=== PATIENT | male | born 1940 | race Caucasian/White ===

== ENCOUNTER 2019-01-07 19:17 | Emergency (ER) | payer MEDICARE, BC, SELFPAY ==
--- NOTE | 2019-01-07 19:33 | DI.RAD.S_ITS ---
PROCEDURE: XR FOOT RT MIN 3V INDICATIONS: right foot pain and injury TECHNIQUE: 3 views of the foot were acquired. COMPARISON: None. FINDINGS: Bones: No fractures or dislocations. There is an accessory ossicle at the lateral aspect of the distal calcaneus, but no fracture or traumatic subluxation is found. No suspicious bony lesions. Soft tissues: No tibiotalar joint effusion. Achilles tendon appears normal. IMPRESSION: No trauma found, is not lobe made of a mildly irregular accessory ossicle at the lateral border of the distal calcaneus near the calcaneocuboid articulation. Dictated by: Papo Correa M.D. on 01/07/2019 at 20:06 Approved by: Papo Correa M.D. on 01/07/2019 at 20:10
[2019-01-07 20:02] VITALS: BP 124/76; PULSE 60; RESP 18; TEMP 36.6; O2SAT 100
--- NOTE | 2019-01-07 20:54 | ED.LOWEXIN ---
HPI - Extremity Injury (Lower) General Chief Complaint: Extremity Injury, Lower Stated Complaint: RT FOOT INJURY Time Seen by Provider: 01/07/19 20:46 Source: patient and family Mode of arrival: ambulatory Limitations: no limitations History of Present Illness HPI Narrative: 78-year-old male nonsmoker with noncontributory medical exam presents with his and a chief complaint of right ankle pain after an injury earlier today. 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 He denies knee or hip pain. He denies any history of ankle injury. He denies any numbness, tingling or weakness. His pain is worse with ambulation and improves with rest. His pain is more significant now than when he injured it a few hours ago complaint: ankle injury Onset (ago): hour(s) Type of Injury: inversion Place: street/outdoors Severity: moderate Relieving factors: rest Exacerbating factors: weight bearing and movement Context: walking Associated symptoms: swelling and able to partially bear weight Other symptoms: none Related Data Allergies Allergy/AdvReac Type Severity Reaction Status Date / Time No Known Drug Allergies Allergy Verified 01/07/19 20:14 Review of Systems Constitutional Denies chills, Denies fever(s), Denies lethargy and Denies weakness Eyes Denies change in vision, Denies eye discharge, Denies irritation and Denies loss of vision ENT Ears, Nose, Mouth, and Throat: Denies change in voice, Denies neck pain and Denies sore throat Cardiovascular Denies chest pain, Denies irregular heart rhythm, Denies lightheadedness, Denies palpitations, Denies dyspnea, Denies dyspnea on exertion and Denies orthopnea Respiratory Denies cough, Denies dyspnea, Denies dyspnea on exertion and Denies wheezing Gastrointestinal Gastrointestinal: Denies abdominal pain, Denies change in bowel habits, Denies diarrhea, Denies nausea and Denies vomiting Genitourinary Denies hematuria, Denies flank pain, Denies urinary incontinence and Denies urinary urgency Musculoskeletal Reports arthralgias, Reports joint swelling, Reports limited range of motion and Denies neck pain Integumentary/Breasts Denies pruritus, Denies erythema, Denies rash and Denies wounds Neurologic Denies confusion, Denies loss of vision and Denies weakness Psychiatric Denies anxiety, Denies confusion, Denies depression, Denies homicidal ideation and Denies suicidal ideation Endocrine Denies palpitations Hematologic/Lymphatic Denies easy bruising Allergic/Immunologic Denies wheezing PFSH Social History Smoking Status: Never smoker Social History Smoking Status: Never smoker Exam Narrative Exam Narrative: GEN: AOx3 and in mild distress EYES: Pupils are equal, round, and reactive to light and accommodation. Extraoccular muscles are intact bilaterally. There is no subconjunctival hemorrhage or exudate. CHEST: Lungs are clear to auscultation bilaterally and free of wheezes, rales, or rhonchi. Heart rate is regular rhythm, there are no murmurs, clicks, rubs, or gallops. There is no chest wall tenderness. ABD: Abdomen is soft and nontender. There is no guarding or rebound. Bowel sounds are normal in all 4 quadrants. There is no mass or organomegaly. EXT: Full but painful range of motion of right ankle with no obvious swelling or deformity. This is closed, isolated and neurovascularly intact SKIN: Warm, pink, and dry. No erythema or rash Initial Vital Signs Initial Vital Signs: Vital Signs Temperature 98 F 01/07/19 20:02 Pulse Rate 60 01/07/19 20:02 Respiratory Rate 18 01/07/19 20:02 Blood Pressure 124/76 01/07/19 20:02 Pulse Oximetry 100 01/07/19 20:02 Procedures Orthopedic Splinting/Casting Injury #1: Side: right Lower Extremity Injury Location: ankle Lower Extremity Immobilizer: Cristofer wrap Post splinting neuro exam: intact Post splinting vascular exam: intact Placed by: Nursing Course Orders Ordered: ED Orders 01/07/19 19:33 XR foot RT min 3V Stat Vital Signs - 8 hr 01/07/19 20:02 01/07/19 22:06 Temperature 98 F Pulse Rate 60 79 Respiratory Rate 18 18 Blood Pressure 124/76 Blood Pressure [Left Arm] 130/79 Pulse Oximetry 100 97 MDM - Extremity Injury (Lower) Imaging Data Foot Xray: Radiologist's impression: [address] [address] XRay Report Signed Patient: Roger Hensley [facility]#: [id number] : 2Acct:[id number] Age/Sex: 78 / MDate of Service: 01/07/19 Loc: ED Accession Number: [id number] Procedure: XR foot RT min 3V Ordering Provider: Abiodun Chen D.O. PROCEDURE: XR FOOT RT MIN 3V INDICATIONS: right foot pain and injury TECHNIQUE: 3 views of the foot were acquired. COMPARISON: None. FINDINGS: Bones: No fractures or dislocations. There is an accessory ossicle at the lateral aspect of the distal calcaneus, but no fracture or traumatic subluxation is found. No suspicious bony lesions. Soft tissues: No tibiotalar joint effusion. Achilles tendon appears normal. IMPRESSION: No trauma found, is not lobe made of a mildly irregular accessory ossicle at the lateral border of the distal calcaneus near the calcaneocuboid articulation. Dictated by: Papo Correa M.D. on 01/07/2019 at 20:06 Approved by: Papo Correa M.D. on 01/07/2019 at 20:10 Discharge Plan Departure Patient Disposition: Home Clinical Impression: Ankle sprain and strain Discharge Date/Time: 01/07/19 22:05 Interventions: ED Discharge Assessment Last Done: 01/07/19 22:06 Instructions: Ankle Sprain Activity Restrictions/Additional Instructions: *You have been diagnosed with [right ankle sprain and strain] *What to do: *Take medications as directed: Tylenol and Motrin for inflammation and pain *Follow up with your primary care provider in 2-3 days, call for an appointment. Let them know you were seen in the Emergency Department and that we ask that you be seen in follow up *Return to ER if you should have any new, worsening or concerning symptoms
[2019-01-07 22:06] VITALS: BP 130/79; PULSE 79; RESP 18; O2SAT 97
--- NOTE | 2019-01-08 01:43 | ED_ITS ---
HPI - Extremity Injury (Lower) General Chief Complaint: Extremity Injury, Lower Stated Complaint: RT FOOT INJURY Time Seen by Provider: 01/07/19 20:46 Source: patient and family Mode of arrival: ambulatory Limitations: no limitations History of Present Illness HPI Narrative: 78-year-old male nonsmoker with noncontributory medical exam presents with his and a chief complaint of right ankle pain after an injury earlier today. 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 He denies knee or hip pain. He denies any history of ankle injury. He denies any numbness, tingling or weakness. His pain is worse with ambulation and improves with rest. His pain is more significant now than when he injured it a few hours ago complaint: ankle injury Onset (ago): hour(s) Type of Injury: inversion Place: street/outdoors Severity: moderate Relieving factors: rest Exacerbating factors: weight bearing and movement Context: walking Associated symptoms: swelling and able to partially bear weight Other symptoms: none Related Data Allergies Allergy/AdvReac Type Severity Reaction Status Date / Time No Known Drug Allergies Allergy Verified 01/07/19 20:14 Review of Systems Constitutional Denies chills, Denies fever(s), Denies lethargy and Denies weakness Eyes Denies change in vision, Denies eye discharge, Denies irritation and Denies loss of vision ENT Ears, Nose, Mouth, and Throat: Denies change in voice, Denies neck pain and Denies sore throat Cardiovascular Denies chest pain, Denies irregular heart rhythm, Denies lightheadedness, Denies palpitations, Denies dyspnea, Denies dyspnea on exertion and Denies orthopnea Respiratory Denies cough, Denies dyspnea, Denies dyspnea on exertion and Denies wheezing Gastrointestinal Gastrointestinal: Denies abdominal pain, Denies change in bowel habits, Denies diarrhea, Denies nausea and Denies vomiting Genitourinary Denies hematuria, Denies flank pain, Denies urinary incontinence and Denies urinary urgency Musculoskeletal Reports arthralgias, Reports joint swelling, Reports limited range of motion and Denies neck pain Integumentary/Breasts Denies pruritus, Denies erythema, Denies rash and Denies wounds Neurologic Denies confusion, Denies loss of vision and Denies weakness Psychiatric Denies anxiety, Denies confusion, Denies depression, Denies homicidal ideation and Denies suicidal ideation Endocrine Denies palpitations Hematologic/Lymphatic Denies easy bruising Allergic/Immunologic Denies wheezing PFSH Social History Smoking Status: Never smoker Social History Smoking Status: Never smoker Exam Narrative Exam Narrative: GEN: AOx3 and in mild distress EYES: Pupils are equal, round, and reactive to light and accommodation. Extraoccular muscles are intact bilaterally. There is no subconjunctival hemorrhage or exudate. CHEST: Lungs are clear to auscultation bilaterally and free of wheezes, rales, or rhonchi. Heart rate is regular rhythm, there are no murmurs, clicks, rubs, or gallops. There is no chest wall tenderness. ABD: Abdomen is soft and nontender. There is no guarding or rebound. Bowel sounds are normal in all 4 quadrants. There is no mass or organomegaly. EXT: Full but painful range of motion of right ankle with no obvious swelling or deformity. This is closed, isolated and neurovascularly intact SKIN: Warm, pink, and dry. No erythema or rash Initial Vital Signs Initial Vital Signs: Vital Signs Temperature 98 F 01/07/19 20:02 Pulse Rate 60 01/07/19 20:02 Respiratory Rate 18 01/07/19 20:02 Blood Pressure 124/76 01/07/19 20:02 Pulse Oximetry 100 01/07/19 20:02 Procedures Orthopedic Splinting/Casting Injury #1: Side: right Lower Extremity Injury Location: ankle Lower Extremity Immobilizer: Cristofer wrap Post splinting neuro exam: intact Post splinting vascular exam: intact Placed by: Nursing Course Orders Ordered: ED Orders 01/07/19 19:33 XR foot RT min 3V Stat Vital Signs - 8 hr 01/07/19 20:02 01/07/19 22:06 Temperature 98 F Pulse Rate 60 79 Respiratory Rate 18 18 Blood Pressure 124/76 Blood Pressure [Left Arm] 130/79 Pulse Oximetry 100 97 MDM - Extremity Injury (Lower) Imaging Data Foot Xray: Radiologist's impression: [address] [address] XRay Report Signed Patient: Roger Hensley [facility]#: [id number] : 2Acct:[id number] Age/Sex: 78 / MDate of Service: 01/07/19 Loc: ED Accession Number: [id number] Procedure: XR foot RT min 3V Ordering Provider: Abiodun Chen D.O. PROCEDURE: XR FOOT RT MIN 3V INDICATIONS: right foot pain and injury TECHNIQUE: 3 views of the foot were acquired. COMPARISON: None. FINDINGS: Bones: No fractures or dislocations. There is an accessory ossicle at the lateral aspect of the distal calcaneus, but no fracture or traumatic subluxation is found. No suspicious bony lesions. Soft tissues: No tibiotalar joint effusion. Achilles tendon appears normal. IMPRESSION: No trauma found, is not lobe made of a mildly irregular accessory ossicle at the lateral border of the distal calcaneus near the calcaneocuboid articulation. Dictated by: Papo Correa M.D. on 01/07/2019 at 20:06 Approved by: Papo Correa M.D. on 01/07/2019 at 20:10 Discharge Plan Departure Patient Disposition: Home Clinical Impression: Ankle sprain and strain Discharge Date/Time: 01/07/19 22:05 Interventions: ED Discharge Assessment Last Done: 01/07/19 22:06 Instructions: Ankle Sprain Activity Restrictions/Additional Instructions: *You have been diagnosed with [right ankle sprain and strain] *What to do: *Take medications as directed: Tylenol and Motrin for inflammation and pain *Follow up with your primary care provider in 2-3 days, call for an appoint ment. Let them know you were seen in the Emergency Department and that we ask that you be seen in follow up *Return to ER if you should have any new, worsening or concerning symptoms
== END 2019-01-07 22:05 | disposition home or self-care (01) ==
PROVIDERS: Emergency Provider Emergency Medicine
DX: S93.401A Sprain of unspecified ligament of right ankle, initial encounter (principal); X50.9XXA Other and unspecified overexertion or strenuous movements or postures, initial encounter; Y93.01 Activity, walking, marching and hiking
CPT/HCPCS: 73630; 99283

== ENCOUNTER → 2024-12-08 13:09 | Outpatient (CLI) | payer MEDICARE, BC, SELFPAY ==
--- NOTE | 2024-12-08 13:15 | DI.RAD.S_ITS ---
PROCEDURE: XR FOOT LT MIN 3V INDICATIONS: Ankle sprain TECHNIQUE: 3 views of the foot were acquired. COMPARISON: None. FINDINGS AND IMPRESSION: Nonacute appearing bone fragment seen adjacent to the lateral calcaneus. No acute displaced fracture or dislocation. 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 Calcaneal fragmented enthesopathy. If there is high concern for further derangement, consider MRI evaluation. Dictated by: Hussein Leger M.D. on 12/08/2024 at 13:42 Approved by: Hussein Leger M.D. on 12/08/2024 at 13:43
--- NOTE | 2024-12-08 13:15 | DI.RAD.S_ITS ---
PROCEDURE: XR TIBIA FIBULA LT 2V INDICATIONS: Ankle sprain TECHNIQUE: 2 views of the tibia and fibula were acquired. COMPARISON: None. FINDINGS AND IMPRESSION: Knee arthroplasty partially seen. No acute displaced fracture of the fibular shaft or tibial shaft. No significant soft tissue calcifications. If there is high concern for further derangement, consider MRI evaluation. Dictated by: Hussein Leger M.D. on 12/08/2024 at 13:43 Approved by: Hussein Leger M.D. on 12/08/2024 at 13:44
--- NOTE | 2024-12-08 13:15 | DI.RAD.S_ITS ---
PROCEDURE: XR ANKLE LT MIN 3V INDICATIONS: Ankle sprain TECHNIQUE: 3 views of the ankle were acquired. COMPARISON: None. FINDINGS AND IMPRESSION: Nonacute appearing bone fragment seen adjacent to the lateral malleolus. Age-indeterminate tiny bone fragments also seen adjacent to the medial malleolus. Mild tibiotalar arthrosis. No definite acute fracture or dislocation. Mild soft tissue swelling. Ligamentous injury is possible. If there is high concern for further derangement, consider MRI evaluation. Dictated by: Hussein Leger M.D. on 12/08/2024 at 13:41 Approved by: Hussein Leger M.D. on 12/08/2024 at 13:42
== END ==
LOC: RAD 13:13
PROVIDERS: Referring Provider Nurse Practitioner Family; Visit Provider Nurse Practitioner Family
DX: S93.402A Sprain of unspecified ligament of left ankle, initial encounter (principal); M19.072 Primary osteoarthritis, left ankle and foot; M79.89 Other specified soft tissue disorders; X58.XXXA Exposure to other specified factors, initial encounter; Z96.652 Presence of left artificial knee joint
CPT/HCPCS: 73590; 73610; 73630